=== PATIENT | male | born 1950 | race Caucasian/White ===

== ENCOUNTER 2019-11-21 08:05 | Outpatient (RCR) | payer OTHER ==
[~2019-11-21 08:05] MED LIST: OMEPRAZOLE40 MG PO
== END 2019-12-16 ==
LOC: PT 08:05
PROVIDERS: ATTEND Neurological Surgery
DX: M47.896 Other spondylosis, lumbar region (principal)

== ENCOUNTER → 2020-03-16 | Outpatient (RCR) | payer OTHER | LOC: PT 02-23 06:58 | PROVIDERS: ATTEND Internal Medicine | DX: M54.31 Sciatica, right side (principal); M47.896 Other spondylosis, lumbar region; M62.81 Muscle weakness (generalized); M54.5 Low back pain | CPT/HCPCS: 97139 ==